=== PATIENT | male | born 1975 | race Hispanic/Latino ===

== ENCOUNTER 2018-07-19 22:52 | Emergency (ER) | payer SELFPAY ==
[~2018-07-19] VITALS: Ht 180.3 cm; Wt 99.8 kg
--- NOTE | 2018-07-20 | Diagnostic Imaging Report ---
EXAMINATION: CHEST SINGLE (PORTABLE) INDICATION: Palpitations. COMPARISON: None FINDINGS: AP view TUBES and LINES: None. LUNGS: Lungs are well inflated. Mild right basilar atelectasis. There is no evidence of pneumonia or pulmonary edema. PLEURA: No pleural effusion or pneumothorax. HEART AND MEDIASTINUM: The cardiomediastinal silhouette is unremarkable. BONES AND SOFT TISSUES: No acute osseous lesion. Soft tissues are unremarkable. UPPER ABDOMEN: No free air under the diaphragm. IMPRESSION: No acute thoracic abnormality. Signed by: DR. Dale Horton MD on 07/19/2018 11:57 PM
[2018-07-20 01:30] VITALS: BP 157/94
== END 2018-07-20 01:38 | disposition home or self-care (01) ==
LOC: ER 22:52
DX: R00.2 Palpitations (principal); E78.5 Hyperlipidemia, unspecified
CPT/HCPCS: 71045; 93005; 99283